=== PATIENT | female | born 1980 | race Caucasian/White ===

== ENCOUNTER 2016-11-18 11:02 | Emergency (ER) | payer SELFPAY ==
[2016-11-18 11:08] VITALS: BP 124/84
[2016-11-18] MEDS ORDERED: DEXAMETHASONE SOD PHOSPHATE INJ 4 MG/1 ML VIAL IM ONE (12:53)
--- NOTE | 2016-11-18 12:57 | ER Document Report ---
HPI - HPI Patient complains to provider of: rash Onset: Last week Onset/Duration: Sudden Quality of pain: Other - itchy Pain Level: 3 Context: Patient presents emergency department with complaints of the itchy rash to her chest wall for the past week. She denies recent exposure to any new products new medications. She denies other symptoms such as fever vomiting diarrhea. Reports she is not allergic to anything. Reports she has been wearing a necklace but has had the necklace for over a year. 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 Also complains that she has noticed a rash to her legs that comes and goes. No rash at this time. Associated Symptoms: None Exacerbated by: Denies Relieved by: Denies Similar symptoms previously: No Recently seen / treated by doctor: No - REPRODUCTIVE Reproductive: DENIES: : - DERM Skin Color: Normal Past Medical History - General Information source: Patient Last Menstrual Period: october - Social History Smoking Status: Current Every Day Smoker Cigarette use (# per day): Yes Frequency of alcohol use: None Drug Abuse: None Occupation: [employer] Lives with: Friend - roomates Family History: Reviewed & Not Pertinent Patient has suicidal ideation: No Patient has homicidal ideation: No - Medical History Medical History: Negative Renal/ Medical History: Denies: Hx Peritoneal Dialysis Past Surgical History: Reports: Hx Tubal Ligation - Immunizations Hx Diphtheria, Pertussis, Tetanus Vaccination: Yes Vertical Provider Document - CONSTITUTIONAL Agree With Documented VS: Yes Exam Limitations: No Limitations General Appearance: WD/WN, No Apparent Distress - nontoxic looking - INFECTION CONTROL TRAVEL OUTSIDE OF THE [place] IN LAST 30 DAYS: No - HEENT HEENT: Atraumatic, Normocephalic - NECK Neck: Normal Inspection, Supple. negative: Lymphadenopathy-Left, Lymphadenopathy-Right - RESPIRATORY Respiratory: Breath Sounds Normal, No Respiratory Distress, Chest Non-Tender O2 Sat by Pulse Oximetry: 100 - CARDIOVASCULAR Cardiovascular: Regular Rate - BACK Back: Normal Inspection - MUSCULOSKELETAL/EXTREMETIES Musculoskeletal/Extremeties: MAEW, FROM - NEURO Level of Consciousness: Awake, Alert, Appropriate Motor/Sensory: No Motor Deficit - DERM Integumentary: Warm, Dry, Rash Adult Front & Back Diagram: 1 - macularpapular rash scattered to chest wall, no vesicles, no open wounds, no pustules Course - Re-evaluation Re-evalutation: 11/18/16 13:00 Patient instructed on Benadryl and steroid injection. Patient was also warned about scratching herself and opening the skin which may result in a bacterial infection. She verbalized understanding to all instructions. She was instructed for continued rash to follow-up with dermatology. - Vital Signs Vital signs: Temp Pulse Resp BP Pulse Ox 98.1 F 73 14 124/84 100 11/18/16 11:07 11/18/16 11:07 11/18/16 11:07 11/18/16 11:07 11/18/16 11:07 Discharge - Discharge Clinical Impression: Rash Condition: Stable Disposition: HOME, SELF-CARE Instructions: Steroid Medication Injection, Use of Diphenhydramine, Retail Coverage Merchandiser Additional Instructions: *You have been treated for a rash *You have received a steroid injection *Take benadryl as indicated *Avoid itching, apply cool packs to help minimize itch *Follow up with a primary care provider or excellence leader within one week for recheck *Return to ED for signs of infection, worsening condition, changes, needs Monitor your blood pressure. Your blood pressure was elevated today. This may be because you were anxious, in pain or because you need medication. It is important to follow up with your primary care provider for full evaluation. Forms: Elevated Blood Pressure, Return to Work
== END 2016-11-18 14:20 | disposition home or self-care (01) ==
LOC: ER 11:02
DX: R21 Rash and other nonspecific skin eruption (principal); R07.89 Other chest pain; F17.210 Nicotine dependence, cigarettes, uncomplicated; Z98.51 Tubal ligation status
CPT/HCPCS: 99282; 96372; J1100

== ENCOUNTER 2016-12-08 23:27 | Emergency (ER) | payer SELFPAY ==
[2016-12-09 00:48] VITALS: BP 104/69
[2016-12-09] MEDS ORDERED: HYDROCODONE/ACETAMINOPHEN 5-325 MG TABLET PO ONE (00:53)
[2016-12-09 01:06] LABS: APPEARANCE,URINE CLEAR; BILIRUBIN,URINE NEGATIVE (NEGATIVE); GLUCOSE, URINE NEGATIVE (NEGATIVE); KETONES,URINE NEGATIVE (NEGATIVE); LEUKOCYTE ESTERASE,URINE NEGATIVE (NEGATIVE); NITRITE,URINE NEGATIVE (NEGATIVE); PROTEIN,URINE NEGATIVE (NEGATIVE); URINE SPECIFIC GRAVITY 1.001; UROBILINOGEN,URINE NEGATIVE mg/dL (<2.0)
--- NOTE | 2016-12-09 01:16 | ER Document Report ---
ED General - General Chief Complaint: Lower Abdominal Pain Stated Complaint: LOWER ABDOMINAL PAIN Time Seen by Provider: 12/08/16 23:47 Notes: Patient is a 36-year-old female presents with complaint of severe lower abdominal pain is mostly in the right lower quadrant. No fevers. No vomiting. No diarrhea. She has had some abnormal vaginal discharge. She does state that her boyfriend was recently cheating on her. She says she does have a family history of ovarian cyst. She has no other complaints at this time. TRAVEL OUTSIDE OF THE [place] IN LAST 30 DAYS: No - Related Data Allergies/Adverse Reactions: coconut Allergy (Verified 11/18/16 11:07) codeine Allergy (Verified 11/18/16 11:07) Penicillins Allergy (Verified 11/18/16 11:07) Past Medical History - Social History Smoking Status: Never Smoker Frequency of alcohol use: None Drug Abuse: None Family History: Reviewed & Not Pertinent Renal/ Medical History: Denies: Hx Peritoneal Dialysis Past Surgical History: Reports: Hx Tubal Ligation - Immunizations Hx Diphtheria, Pertussis, Tetanus Vaccination: Yes Review of Systems - Review of Systems Notes: My Normal Review Basic REVIEW OF SYSTEMS: CONSTITUTIONAL : Denies fever, chills, or sweats. Denies recent illness. RESPIRATORY: Denies cough, cold, or chest congestion. Denies shortness of breath, difficulty breathing, or wheezing. GASTROINTESTINAL: Abdominal pain GENITOURINARY: Denies difficulty urinating, painful urination, burning, frequency, or blood in urine. FEMALE GENITOURINARY: Abnormal vaginal discharge. MUSCULOSKELETAL: Denies neck or back pain or joint pain or swelling. SKIN: Denies rash or skin lesions. NEUROLOGICAL: Denies altered mental status or loss of consciousness. Denies headache. Denies weakness or paralysis or loss of use of either side. Denies problems with gait or speech. Denies sensory or motor loss. ALL OTHER SYSTEMS REVIEWED AND NEGATIVE. Physical Exam - Vital signs Vitals: Temp Pulse Resp BP Pulse Ox 97.8 F 77 20 104/69 98 12/08/16 23:32 12/08/16 23:32 12/08/16 23:32 12/08/16 23:32 12/08/16 23:32 - Notes Notes: General Appearance: Well nourished, alert, cooperative, no acute distress, moderate obvious discomfort. Vitals: reviewed, See vital signs table. Head: no swelling or tenderness to the head Eyes: PERRL, EOMI, Conjuctiva clear Mouth: No decreasd moisture Lungs: No wheezing, No rales, No rhonci, No accessory muscle use, good air exchange bilaterally. Heart: Normal rate, Regular rythm, No murmur, no rub Abdomen: Normal BS, soft, No rigidity,moderate right lower quadrant abdominal tenderness to palpation, someguarding, no rebound, no abdominal masses, no organomegaly Pelvic: Normal external genitalia. No blood in vaginal vault. No abnormal discharge. Extremities: strength 5/5 in all extremities, good pulses in all extremities, no swelling or tenderness in the extremities, no edema. Skin: warm, dry, appropriate color, no rash Neuro: speech clear, oriented x 3, normal affect, responds appropriately to questions. Course - Re-evaluation Re-evalutation: 12/09/16 01:53 I just informed the patient that her ultrasound was negative. She is not . She still has right lower quadrant tenderness. I informed her that the next step in her workup would be to make sure that she does not have appendicitis. I suggested that we obtain lab work and CT scan. Patient was very emotionally upset and says that she is here alone and she does not want to be her alone and wants to go find her mother to come here. Informed her that if she leaves and she does have appendicitis that her appendix can rupture and she could . Patient is understanding of this. She requests that she go to the waiting room so that she can find her friend and possibly get her mother's phone number to call her. I informed her that that is fine but I requested that she comes back and please let me know if she is going to do. Again I strongly encouraged her to stay no matter what so that we can rule out appendicitis. I informed her multiple times that appendicitis is life- threatening and that if she leaves in her appendix ruptures she could . Patient again shows understanding of this and still leaves to go to the waiting room. I will wait for her to return. 12/09/16 02:32 Patient went to the waiting room saying that she would return, she never actually returned. Before patient went to the waiting room I did inform her several times that there is a chance she could have appendicitis and that we must do a workup for that if she was to leave without the workup that she could have a ruptured appendix and . Patient showed understanding of the several times but obviously still decided to leave anyways. Dictation of this chart was performed using voice recognition software; therefore, there may be some unintended grammatical errors. - Vital Signs Vital signs: Temp Pulse Resp BP Pulse Ox 97.8 F 77 20 104/69 98 12/08/16 23:32 12/08/16 23:32 12/08/16 23:32 12/08/16 23:32 12/08/16 23:32
--- NOTE | 2016-12-09 01:35 | RADIOLOGY REPORT (SQ) ---
EXAM DESCRIPTION: U/S NON OB PEL TV W/DOPPLER COMPLETED DATE/TIME: 12/09/2016 1:24 am REASON FOR STUDY: pelvic pain COMPARISON: None. TECHNIQUE: Dynamic and static grayscale images acquired of the pelvis via transvaginal approach and recorded on PACS. Additional selected color Doppler and spectral images recorded. LIMITATIONS: Incomplete emptying of urinary bladder despite 2 attempts by the patient. FINDINGS: UTERUS: Contour normal. No mass. ENDOMETRIAL STRIPE: No focal or generalized thickening. No masses. CERVIX: No nabothian cysts. RIGHT OVARY: Ovary not visualized. RIGHT OVARY DOPPLER: Ovary not visualized. LEFT OVARY: Ovary not visualized. LEFT OVARY DOPPLER: Ovary not visualized. FREE FLUID: None noted. OTHER: No other significant finding. MEASUREMENTS: UTERUS: 8.3 x 4 x 5 cm. ENDOMETRIAL STRIPE: 0.7 cm thick. RIGHT OVARY: Not visualized. LEFT OVARY: Not visualized. IMPRESSION: No acute findings. Ovaries not directly visualized. TECHNICAL DOCUMENTATION: JOB ID: [id number] [facility]- All Rights Reserved
[2016-12-09 02:37] LABS: CHLAM PCR NOT DETECTED (NOT DETECT)
== END 2016-12-09 02:42 | disposition left against medical advice (07) ==
LOC: ER 23:27
DX: R10.31 Right lower quadrant pain (principal); N89.8 Other specified noninflammatory disorders of vagina; Z88.5 Allergy status to narcotic agent; Z88.0 Allergy status to penicillin; Z91.018 Allergy to other foods; Z98.51 Tubal ligation status; Z84.2 Family history of other diseases of the genitourinary system; Z53.29 Procedure and treatment not carried out because of patient's decision for other reasons
CPT/HCPCS: 76830; 81001; 81025; 87210; 87491; 87591; 93976; 99281